=== PATIENT | male | born 1990 | race Caucasian/White ===

== ENCOUNTER 2019-01-08 18:06 | Emergency (ER) | payer OTHER ==
[~2019-01-08] VITALS: Ht 193 cm; Wt 97.5 kg
== END 2019-01-08 19:45 | disposition home or self-care (01) ==
LOC: ED 18:06
PROC: 0XQPXZZ Repair Left Index Finger, External Approach (ICD-10-PCS; principal; 2019-01-08)
DX: S61.211A Laceration without foreign body of left index finger without damage to nail, initial encounter (principal); Z88.6 Allergy status to analgesic agent; Z88.5 Allergy status to narcotic agent; W26.0XXA Contact with knife, initial encounter
CPT/HCPCS: 12001; 90471; 90715; 99282-25